=== PATIENT | female | born 1980 | race Caucasian/White ===

== ENCOUNTER 2020-10-17 12:05 | Emergency (ER) | payer MEDICAID ==
[2020-10-17 12:27] VITALS: BP 151/92
[2020-10-17] MEDS ORDERED: IBUPROFEN 600 MG TABLET PO ONE (13:24)
--- NOTE | 2020-10-17 13:30 | ER Document Report ---
HPI - HPI Time Seen by Provider: 10/17/20 13:16 Pain Level: 5 Notes: 40-year-old female presents to the emergency room today for evaluation of her right shoulder after she was walking around her 50 pound dog yesterday, the dog saw a cat and when after it, pulling her right shoulder. Denies any falling onto her shoulder trauma. She states that she did hear a "pop". Patient reports that she did have a right shoulder tendon that was repaired a year ago. Tried [id number] ibuprofen and Tylenol without for relief. Does report some numbness and tingling to her right fifth fourth third fingers. Reports she has had a complete hysterectomy in 2011. Reports pain is 3 out of 5, throbbing achy. Worse with time, nothing makes better. Has not tried any icing or heating. - MUSCULOSKELETAL Musculoskeletal: REPORTS: Extremity pain Past Medical History - General Information source: Patient - Social History Smoking Status: Never Smoker Frequency of alcohol use: None Drug Abuse: None Family History: Reviewed & Not Pertinent Vertical Provider Document - CONSTITUTIONAL Agree With Documented VS: Yes Exam Limitations: No Limitations General Appearance: WD/WN Notes: MEDICATIONS: I agree with the patient medications as charted by the RN. ALLERGIES: I agree with the allergies as charted by the RN. PAST MEDICAL HISTORY/PAST SURGICAL HISTORY: Reviewed and agree as charted by RN. SOCIAL HISTORY: Reviewed and agree as charted by RN. FAMILY HISTORY: No significant familial comorbid conditions directly related to patient complaint EXAM: Reviewed vital signs as charted by RN. PHYSICAL EXAMINATION: reviewed vital signs by RN GENERAL: Well-appearing, well-nourished and in no acute distress. HEAD: Atraumatic, normocephalic. EYES: Pupils equal round and reactive to light, extraocular movements intact, conjunctiva are normal. ENT: Nares patent, oropharynx clear without exudates. Moist mucous membranes. NECK: Normal range of motion, supple without lymphadenopathy LUNGS: Breath sounds clear to auscultation bilaterally and equal. No wheezes rales or rhonchi. HEART: Regular rate and rhythm without murmurs ABDOMEN: Soft, nontender, nondistended abdomen. No guarding, no rebound. No masses appreciated. Female : deferred Musculoskeletal: Normal range of motion, no pitting or edema. No cyanosis. right shoulder pain on anterior aspect with palpation. noted right shoulder pain with abduction and flexion. no pain with supination, pronation, extension. Student Success Counselor + 2 BUE equally. APROM in shoulder. DTR +2 in BUE equally. Noted crepitus with APROM in elbow. negative drop arm, neer sign. positive impingement sign all on right . No vascular compromise. Neck with full APROM, no cervical spinal tenderness. No tenderness over clavicles or step off noted bilaterally. Strength 5 out of 5 in bilateral upper extremities equally. NEUROLOGICAL: Cranial nerves grossly intact. Normal speech, normal gait. Normal sensory, motor exams PSYCH: Normal mood, normal affect. SKIN: Warm, Dry, normal turgor, no rashes or lesions noted. Course - Re-evaluation Re-evalutation: 10/17/20 15:23 Afebrile vital stable no distress. Nurses notes reviewed. X-ray of right shoulder negative for any acute fracture. Patient given sling. Advised to follow-up with dental billing specialist within 24 to 48 hours. Take muscle relaxers and naproxen as directed, do not drive, drink alcohol or operate heavy machinery while taking medications like laceration or impairment of cognitive function. After performing a Medical Screening Examination, I estimate there is LOW risk for OPEN FRACTURE, COMPARTMENT SYNDROME, DEEP VENOUS THROMBOSIS, ACUTE TENDON RUPTURE, or NEUROVASCULAR INJURY thus I consider the discharge disposition reasonable. I have reevaluated this patient multiple times and no significant life threatening changes are noted. The patient and I have discussed the diagnosis and risks, and we agree with discharging home to closely follow-up with their primary doctor or the referral orthopedist with the understanding that symptoms and presentations can change. We also discussed returning to the Emergency Department immediately if new or worsening symptoms occur. We have discussed the symptoms which are most concerning (e.g., changing or worsening pain, numbness, weakness) that necessitate immediate return 10/17/20 15:52 - Vital Signs Vital signs: Temp Pulse Resp BP Pulse Ox 98.7 F 107 H 18 151/92 H 97 10/17/20 12:26 10/17/20 12:26 10/17/20 12:26 10/17/20 12:26 10/17/20 12:26 Discharge - Discharge Clinical Impression: Right shoulder strain Condition: Stable Disposition: HOME, SELF-CARE Instructions: Muscle Relaxers ([facility]), Muscle Strain ([facility]), Shoulder Injury ([facility]), Sling to be Used ([facility]) Additional Instructions: Your x-ray today was negative for any acute fracture dislocation. You were given a sling to help support your shoulder. Please take muscle relaxers as directed, do not drive, drink alcohol or operate heavy machinery while taking medication as cause sedation or impairment of cognitive function. Please follow-up with dental billing specialist as well as a primary care provider within the next 24 to 48 hours. Return immediately for any new or worsening symptoms. Follow up with primary care provider, call tomorrow to make followup appointment. Prescriptions: Naproxen 500 mg PO BID #10 tablet Methocarbamol [Robaxin 500 mg Tablet] 500 mg PO QID PRN #15 tablet PRN Reason: Referrals: ZAKIYA SOLO DO [ACTIVE STAFF] - Follow up as needed LEROY GUERIN MD [NO LOCAL MD] - Follow up as needed
--- NOTE | 2020-10-17 17:22 | RADIOLOGY REPORT (SQ) ---
EXAM DESCRIPTION: SHOULDER RIGHT 2 OR MORE VIEWS IMAGES COMPLETED DATE/TIME: 10/17/2020 1:56 pm REASON FOR STUDY: R shoulder pain, 150lb dog pulled her, +pain COMPARISON: None. NUMBER OF VIEWS: Three views. TECHNIQUE: Internal rotation, external rotation, and Y view images acquired of the right shoulder. LIMITATIONS: None. FINDINGS: MINERALIZATION: Normal. BONES: No acute fracture. Degenerative changes in the acromioclavicular joint with osteophytes. No worrisome bone lesions. JOINTS: No dislocation. VISUALIZED LUNGS AND RIBS: No pneumothorax. No rib fracture. SOFT TISSUES: No radiopaque foreign body. OTHER: No other significant finding. IMPRESSION: DEGENERATIVE CHANGES. NO RADIOGRAPHIC EVIDENCE OF ACUTE INJURY. TECHNICAL DOCUMENTATION: JOB ID: [id number] [employer]- All Rights Reserved Reading location - IP/workstation name: [email or web address]
== END 2020-10-17 15:55 | disposition home or self-care (01) ==
LOC: ER 12:05
DX: S46.911A Strain of unspecified muscle, fascia and tendon at shoulder and upper arm level, right arm, initial encounter (principal); R20.0 Anesthesia of skin; X50.9XXA Other and unspecified overexertion or strenuous movements or postures, initial encounter; Y93.K1 Activity, walking an animal; Z90.710 Acquired absence of both cervix and uterus
CPT/HCPCS: 99283; 73030; J3490